=== PATIENT | male | born 1965 | race Hispanic/Latino ===

== ENCOUNTER → 2019-03-28 | Day surgery (SDC) | payer OTHER ==
[2019-03-24 15:45] LABS: BASOPHILS % 0.6 % (0.0-1.0); EOSINOPHILS # (AUTO) 0.3 (0.0-0.4); HEMATOCRIT 43.3 % (38.2-49.6); HEMOGLOBIN 14.6 g/dL (14.0-18.0); LYMPHOCYTES # (AUTO) 2.5 (1.0-3.2); LYMPHOCYTES % 36.7 % (18.0-39.1); MEAN CORPUSCULAR HEMOGLOBIN 30.9 pg (28-32); MEAN CORPUSCULAR HGB CONC 33.7 g/dL (31-35); MEAN CORPUSCULAR VOLUME 91.7 fL (81-99); MONOCYTES # (AUTO) 0.4 (0.2-0.8); MONOCYTES % 5.7 % (4.4-11.3); NEUTROPHILS # (AUTO) 3.6 (2.1-6.9); NEUTROPHILS % 52.9 % (38.7-80.0); PLATELET COUNT 245 x10e3/uL (140-360); RED BLOOD COUNT 4.72 x10e6/uL (4.3-5.7); RED CELL DISTRIBUTION WIDTH 13.2 % (11.7-14.4)
[2019-03-24 15:54] LABS: INR 0.91; PARTIAL THROMBOPLASTIN TIME 26.9 seconds (23.8-35.5); PROTHROMBIN TIME 12.7 seconds (11.9-14.5)
[2019-03-24 16:01] LABS: ALANINE AMINOTRANSFERASE 18 IU/L (0-55); ALBUMIN 4.2 g/dL (3.5-5.0); ALBUMIN/GLOBULIN RATIO 1.4 (0.8-2.0); ALKALINE PHOSPHATASE 86 IU/L (40-150); ANION GAP 13.1 mmol/L (8-16); BLOOD UREA NITROGEN 9 mg/dL (7-26); BUN/CREATININE RATIO 10 (6-25); CALCIUM 9.6 mg/dL (8.4-10.2); CARBON DIOXIDE 27 mmol/L (22-29); CHLORIDE 103 mmol/L (98-107); CREATININE, SERUM 0.86 mg/dL (0.72-1.25); EST GLOMERULAR FILTRATION RATE > 60 ML/MIN (60-); GLUCOSE 85 mg/dL (74-118); POTASSIUM 4.1 mmol/L (3.5-5.1); SODIUM 139 mmol/L (136-145)
--- NOTE | 2019-03-24 16:26 | Diagnostic Imaging Report ---
Exam: Chest radiograph Clinical History: Preoperative clearance Findings: The cardiomediastinal silhouette and lungs are normal. The regional skeleton and soft tissue are unremarkable. There is no evidence of pleural effusion or pneumothorax. Impression: No radiographic evidence of acute cardiopulmonary disease. Signed by: Dr. Edgar Woody MD on 03/24/2019 4:23 PM
[~2019-03-28] MED LIST: BESIVANCE5 ML OP; BUPIVACAINE HCL 0.5% INJ 30 ML VIAL INJ ONE; CEFTRIAXONE SOD 1 GM/NS 50 ML 50 ML IV ONE; DEXAMETHASONE SOD PHOS INJ 4 MG/ML VIAL ONE; EYE DROPS15 M1 OP; FENTANYL CITRATE/PF 100MCG/2 ML INJ ONE; LIDOCAINE HCL 2% LOCAL INJ 5 ML SDV VIAL INJ ONE; LOTEMAX5 ML OP; MIDAZOLAM HCL 2 MG/2 ML VIAL ONE; NEOMYCIN/POLYMYX/BACITR OINT 0.9 GM PKT ONE; ONDANSETRON HCL INJ 2MG/ML 2ML 2 MG/ML VIAL ONE; PROPOFOL IV EMULSION 10 MG/ML 20 ML VIAL ONE; SEVOFLURANE INHAL SOLN 250 ML PEN BTL ONE; [UNRECOGNIZED DRUG - OTHER] OP
[2019-03-28 16:15] VITALS: BP 141/84
--- NOTE | 2019-03-30 14:58 | Operative Report ---
DATE OF PROCEDURE: 03/28/2019 SURGEON: Harjit Borjas MD PREOPERATIVE DIAGNOSIS: Right spermatocele. POSTOPERATIVE DIAGNOSIS: Right spermatocele. OPERATIVE PROCEDURE PERFORMED: Right spermatocelectomy. ANESTHESIA: General anesthesia. ESTIMATED BLOOD LOSS: Minimal. INDICATIONS: Mr. Nura Jc is a 53-year-old gentleman with an enlarging right spermatocele. PROCEDURE IN DETAIL: The patient was brought into the operating room, placed in the supine position. After initiation of general anesthesia, he was prepped and draped in usual sterile fashion. A horizontal incision was made over the right hemiscrotum and dissection was carried out through the layers of the scrotum. The tunica vaginalis was entered and a small amount of tenacious fluid was removed. The patient was noted to have a large multicystic mass involving the right epididymal head, this was carefully dissected from its surrounding structures and cut away from the surrounding structures. The appendix testis and appendix epididymis were removed with the electrocautery device. Once adequate hemostasis was obtained, the testicle was returned to its position in the hemiscrotum. Hemiscrotum was closed in layers using a running chromic suture. The wound was then cleaned, covered with telfa gauze and sterile fluffs and placed in a scrotal support. Anesthesia was reversed. The patient was transferred to a bed and taken to the postanesthesia care unit in good condition. Of note, the needle and instrument counts were correct at the conclusion of the case. Harjit Borjas MD HLW/MODL /[id number] MTDD
== END | disposition home or self-care (01) ==
LOC: OR 11:15
PROVIDERS: ATTEND Urology
DX: N43.42 Spermatocele of epididymis, multiple (principal); Z01.810 Encounter for preprocedural cardiovascular examination; Z01.812 Encounter for preprocedural laboratory examination; Z01.811 Encounter for preprocedural respiratory examination; Z80.9 Family history of malignant neoplasm, unspecified
CPT/HCPCS: 36415; 54840; 71046; 80053; 85025; 85610; 85730; 88304; 93005; J0696; J1100; J2001; J2250; J2405; J2704; J3010